=== PATIENT | female | born 1965 | race Caucasian/White ===

== ENCOUNTER 2019-10-06 18:47 | Emergency (ER) | payer OTHER ==
[~2019-10-06] VITALS: Ht 170.2 cm; Wt 86.2 kg
[2019-10-06 18:57] VITALS: BP 107/70
--- NOTE | 2019-10-06 19:05 | NUR ---
54 Y/O F PRESENTS TO ED C/O RIGHT ANKLE PAIN S/P FALL LAST NIGHT. PT STATES THAT SHE HURT HER RIGHT FOOT WHEN SHE TRIED TO CATCH HERSELF FROM FALLING LAST NIGHT. RIGHT SWOLLEN ANKLE NOTED WITH SLIGHT REDNESS. PT STATES PAIN IS 4/10. RR EVEN AND UNLABORED. LUNG SOUNDS CLEAR UPON AUSCULTATION. BED IN LOWEST POSITION, SIDE RAIL UP X1. WILL CONTINUE TO MONITOR. PMH: HYSTERECTOMY NKA
--- NOTE | 2019-10-06 19:08 | NUR ---
NIKO TOPETE AT BEDSIDE.
--- NOTE | 2019-10-06 19:08 | NUR ---
XRAY AT BEDSIDE.
[2019-10-06] MEDS ORDERED: IBUPROFEN 600 MG TAB PO ONE (19:15)
--- NOTE | 2019-10-06 19:31 | NUR ---
PTS RIGHT ANKEL WAS PLACED IN A SHORT POSTERIOR LEG SPLINT. PTS PMSC WNL.
--- NOTE | 2019-10-06 20:17 | NUR ---
PT WAS GIVEN CRUTCHES. WAS SHOWN HOW TO PROPERLY USE AND PT SHOWED GOOD USE OF THEM.
[2019-10-06 20:20] VITALS: BP 127/81
== END 2019-10-06 20:20 | disposition home or self-care (01) ==
LOC: MED 18:47
DX: S82.891A Other fracture of right lower leg, initial encounter for closed fracture (principal); X50.9XXA Other and unspecified overexertion or strenuous movements or postures, initial encounter; Y93.89 Activity, other specified; Y92.89 Other specified places as the place of occurrence of the external cause; Y99.8 Other external cause status
CPT/HCPCS: 29515; 73610; 99283; Q0092

== ENCOUNTER 2019-11-13 18:53 | Emergency (ER) | payer OTHER ==
[~2019-11-13] VITALS: Ht 170.2 cm; Wt 86.2 kg
[2019-11-13 19:01] VITALS: BP 137/70
[2019-11-13 19:40] VITALS: BP 137/70
== END 2019-11-13 21:09 | disposition home or self-care (01) ==
LOC: MED 18:53
DX: M25.571 Pain in right ankle and joints of right foot (principal); Z90.711 Acquired absence of uterus with remaining cervical stump; W19.XXXA Unspecified fall, initial encounter; Y93.89 Activity, other specified; Y92.89 Other specified places as the place of occurrence of the external cause; Y99.8 Other external cause status
CPT/HCPCS: 73610; 73620; 99284; Q0092